=== PATIENT | female | born 1995 | race Caucasian/White ===

== ENCOUNTER 2018-01-10 07:57 | Inpatient (IN) | payer BC ==
[~2018-01-10] VITALS: Ht 165.1 cm; Wt 65.8 kg
[2018-01-10] VITALS (7 sets, daily range): BP systolic 112–137; BP diastolic 60–84
--- NOTE | 2018-01-10 08:09 | NUR ---
SPOKE WITH GLADIS LYNCH ANIMAL CONTROL, STATES SHE WILL FOLLOW UP WITH PATIENT.
[2018-01-10 08:49] LABS: ABSOLUTE EOSINOPHILS 0.2 thou/uL (0.0-0.7); ABSOLUTE LYMPHOCYTES 1.2 thou/uL (0.8-5.3); ABSOLUTE MONOCYTES 0.6 thou/uL (0.0-1.2); ABSOLUTE NEUTROPHILS 6.5 thou/uL (1.6-8.1); BASOPHILS 0.5 %; EOSINOPHILS 2.2 %; HEMATOCRIT 40.2 % (37.0-47.0); HEMOGLOBIN 13.6 gm/dL (12.0-15.0); LYMPHOCYTES 14.1 %; MCH 29.3 pg (26.0-34.0); MCHC 33.8 g/dL (28.0-37.0); MCV 86.6 fL (80.0-100.0); MONOCYTES 7.4 %; MPV 8.8 fl. (7.2-11.1); NUCLEATED RBCS 0 /100WBC; PLATELET COUNT* 262 thou/uL (150-400); POLYS 75.8 %; RBC 4.65 mil/uL (4.20-5.00); RDW-CV 12.9 % (10.5-14.5); WBC 8.5 thou/uL (4.0-11.0)
[2018-01-10 08:56] LABS: CALCIUM 8.9 mg/dL (8.5-10.1); CREATININE 0.9 mg/dL (0.6-1.3)
[2018-01-10 09:01] LABS: ALBUMIN 3.9 g/dL (3.4-5.0); TOTAL BILIRUBIN 0.3 mg/dL (<0.1-1.0); TOTAL PROTEIN 7.9 g/dL (6.4-8.2)
[2018-01-10 09:52] LABS: ESR (SEDRATE) 17 mm/hr (0-20)
--- NOTE | 2018-01-10 10:27 | NUR ---
PATIENT ADMITTED FROM ER TO ROOM 110. ALERT AND ORIENTED. PAIN CONTROLLED. RIGHT HAND/WRIST RED/SWOLLEN WITH MULTIPLE BITE GALEANO. ADMISSION HISTORY AND ASSESSMENT CHARTED. ORIENTED TO ROOM AND BED CONTROLS. ORTHO CONSULT. IV ABX IN ER PRIOR TO ADMISSION. CALL LIGHT WITHIN REACH. WILL CONTINUE TO MONITOR.
--- NOTE | 2018-01-10 15:28 | NUR ---
PATIENT TRANSFERRED TO PACU AT THIS TIME.
--- NOTE | 2018-01-10 17:52 | NUR ---
PATIENT RETURNED FROM SURGERY AT THIS TIME. DENIES PAIN. DROWSY. IVF AND IV ANTIBIOTIC INFUSING ORDERED. RIGHT HAND ELEVATED ON PILLOW. BLOCK IN PACU. SCD'S IN PLACE. WATER PROVIDED AND DINNER ORDERED. VSS. RA SAT 97%. FAMILY AT BEDSIDE. WILL CONTINUE TO MONITOR.
[2018-01-11 00:34] VITALS: BP 108/68
--- NOTE | 2018-01-11 05:47 | NUR ---
PATIENT ALERT AND ORIENTED. VITALS STABLE. ALTERNATING PO AND IV PAIN MEDICATION. ACEWRAP TO RIGHT HAND SLIGHTLY LOOSENED PER PATIENT REQUEST. DRESSING C/D/I. RIGHT HAND ELEVATED ON PILLOW. ABLE TO MOVE FINGERS, CAPILLARY REFILL GOOD. UP SBA TO BATHROOM. FLUIDS INFUSING PER ORDER. RESTING COMFORTABLY. HOURLY ROUNDS. BED ALARM IN USE. NURSING WILL CONTINUE TO MONITOR.
[2018-01-11 06:28] LABS: HEMATOCRIT 33.9 % (37.0-47.0); MCH 29.6 pg (26.0-34.0); MCHC 33.9 g/dL (28.0-37.0); MCV 87.4 fL (80.0-100.0); MPV 8.7 fl. (7.2-11.1); RBC 3.88 mil/uL (4.20-5.00); RDW-CV 13.2 % (10.5-14.5); WBC 9.7 thou/uL (4.0-11.0)
[2018-01-11 06:32] LABS: HEMOGLOBIN 11.5 gm/dL (12.0-15.0)
[2018-01-11 06:37] LABS: CALCIUM 8.2 mg/dL (8.5-10.1); CREATININE 0.6 mg/dL (0.6-1.3); MAGNESIUM 1.9 mg/dL (1.8-2.4); POTASSIUM 4.2 mmol/L (3.5-5.1)
[2018-01-11 08:15] VITALS: BP 116/72
--- NOTE | 2018-01-11 15:43 | NUR ---
CM SPOKE TO THE PATIENT TO DISCUSS HOME SITUATION, DISCHARGE PLANNING, AND TO INFORM OF THE ROLE OF CM. PATIENT ALERT, ORIENED AND INDEPENDENT WITH ADL'S. PATIENT WORKS AND DRIVES. PATIENT HAS NO HX OF HH. CM SPOKE TO THE PATIENT ABOUT THE POSSIBILITY OF BEING ON I.V. ABT. PATIENT STATES THAT SHE HAS NEVER DONE THEM, AND IS HOPEFUL THAT SHE WILL RETURN HOME ON ORAL ABT. CM WILL REMAIN AVAILABLE TO ASSIST AND FOLLOW NEEDED.
[2018-01-11 16:04] VITALS: BP 114/63
--- NOTE | 2018-01-11 20:09 | NUR ---
I ASSUMED CARE OF THE PATIENT AT 0700. SHE IS ALERT AND ORIENTED X4. BED IS IN THE LOW LOCKED POSITION, BUT PATIENT IS UP TO THE BATHROOM WITH STAND BY ASSISTANCE X1. SHE WILL LIKELY BE HERE OVER THE WEEKEND GETTING IV ANTIBIOTICS AND CONTROLLING THE PAIN. RIGHT HAND IS RHONDA WRAPPED AND ELEVATED ON PILLOWS AND ICE PACKS HAVE BEEN GIVEN. SHE MOSTLY EATS THE FOOD THAT HER FAMILY BRINGS HER. HOURLY ROUNDING WAS COMPLETED AND PATIENT NEEDS WERE MET. VITAL SIGNS ARE STABLE. WILL CONTINUE TO MONITOR.
[2018-01-11 21:20] VITALS: BP 106/63
[2018-01-11 23:30] VITALS: BP 122/82
[2018-01-12 04:43] VITALS: BP 115/60
[2018-01-12 04:46] LABS: HEMATOCRIT 33.3 % (37.0-47.0); HEMOGLOBIN 11.3 gm/dL (12.0-15.0); MCH 29.6 pg (26.0-34.0); MCHC 33.8 g/dL (28.0-37.0); MCV 87.5 fL (80.0-100.0); MPV 8.4 fl. (7.2-11.1); RBC 3.8 mil/uL (4.20-5.00); RDW-CV 13.1 % (10.5-14.5); WBC 8.6 thou/uL (4.0-11.0)
--- NOTE | 2018-01-12 04:54 | NUR ---
PATIENT ALERT AND ORIENTED. VITALS STABLE. UP WITH SBA. PAIN CONTROLLED WITH PO MEDICATION. DENIES NAUSEA. RIGHT HAND DRESSING C/D/I, ELEVATED ON PILLOW. ICEPACK IN PLACE. HOURLY ROUNDS. BED ALARM IN USE. NURSING WILL CONTINUE TO MONITOR.
[2018-01-12 08:15] VITALS: BP 108/65
[2018-01-12] MEDS ORDERED: AUGMENTIN 875-1 EACH PO (08:38)
[2018-01-12] MEDS ORDERED: LIDOPATCH1 EACH TOP (08:38)
[2018-01-12] MEDS ORDERED: PHENERGAN 25 MG25 M1 PO (08:38)
[2018-01-12 15:25] VITALS: BP 108/65
--- NOTE | 2018-01-12 19:48 | NUR ---
I ASSUMED CARE OF THE PATIENT AT 0700. SHE IS ALERT AND ORIENTED X4. BED IS IN THE LOW LOCKED POSITION AND CALL LIGHT IS IN REACH. HOURLY ROUNDING WAS COMPLETED AND PATIENT NEEDS WERE MET. PAIN IS MANAGED WITH PRN MEDS. SHE IS PROGRESSING TOWARD GOALS. SHE WAS DISCHARGED TO HOME WITH HER GIRLFRIEND AND UNDERSTANDS DISCHARGE INFO. SCRIPTS WERE GIVEN. SHE WAS WALKED OUT AT 1445.
--- NOTE | 2018-01-17 06:54 | OP ---
[address] [address] OPERATIVE REPORT Name: TALIARENETTA DUMAS Room: [address]#: [id number] Admission: 01/10/18 Attend Phys: Alyssa Gallo MD Discharge: 01/12/18 Date of : 89 Report #: [id number] THIS REPORT FOR: //name// CC: Alyssa Reyes DATE OF SERVICE: 01/10/2018 PREOPERATIVE DIAGNOSIS: Cat bite to the right hand with cellulitis, possibility of septic arthritis, metacarpophalangeal joint, index finger. POSTOPERATIOVE DIAGNOSIS: Cat bite to the right hand with cellulitis, possibility of septic arthritis, metacarpophalangeal joint, index finger. SURGERY PERFORMED: Incision and excisional debridement of extensor synovial tissue over 3 cm x 1 cm sharp dissection and scissors technique. The patient had an arthrotomy of the MP joint index finger with lavage. SURGEON: Dawood Morse DO MACHINE WELT BUTTER: Zach. ANESTHESIA: General technique and local anesthetic postoperatively of 0.25% plain Marcaine. DESCRIPTION OF PROCEDURE: The patient has no drains. No complications. There is no specimen, but she did have a culture of the MP joint, synovial fluid and also a culture of subcutaneous tissues. The patient's estimated blood loss is nil. The patient has no complications. GROSS FINDINGS PRIOR TO SURGERY: The patient demonstrated multiple cat bites with puncture holes over the index finger MP joint area with significant erythema and swelling and pain through motion. The patient did demonstrate superficial ones to the dorsal hand and wrist region otherwise, but were not dramatic like the index finger. Upon open inspection, it demonstrated fluid within the MP joint more than normal and hypertrophic synovial layer. The extensor tendon area externally to the joint demonstrated puncture bites where there was significant amount of soft tissue inflammation present over the entire extensor complex. SURGERY IN DETAIL: The patient was taken to the operating room and placed on table, given the benefit of general anesthetic. She had a well-padded tourniquet placed on the right upper extremity, underwent a chlorhexidine prep and sterile draping for right hand surgery. Timeout was called and verified for the right. We esmarched the extremity with the Esmarch proximal to the bite wounds and then inflated tourniquet to 200 mmHg. Under loupe magnification, [place] [address] OPERATIVE REPORT Name: RENETTA MUKHERJEE Room: [address]#: [id number] Admission: 01/10/18 Attend Phys: Alyssa Gallo MD Discharge: 01/12/18 Date of : 89 Report #: [id number] longitudinal incision was made over the MP joint extending proximally and distally for at least 1.5 cm. Once the extensor tendon was visualized, we did excisionally debrided out all that inflammatory tissue in the subcutaneous plane by scissor technique and sharp technique over that entire 3 cm span by at least 1.5 cm down to the extensor tendon. Once this was cleaned out, we copiously irrigated that layer with normal saline and then the MP joint felt very boggy, so we did do a longitudinal incision through the capsule, did the arthrotomy, took cultures deep within there. The fluid that was present was more than normal and it was copiously lavaged to the entire MP joint with normal saline. The capsule was closed with inverted 3-0 Monocryl and skin was closed with 3-[address], a simple fashion. We did the infiltration of 0.25% Marcaine and then went ahead and finished closing the area with Xeroform, 4 x 4s, Mayda and Eric wrap. Transferred off table, taken to recovery in stable condition. I was present for the entire case. Needle, instrument, sponge counts correct. <ELECTRONICALLY SIGNED> By: Dawood Morse DO 01/17/18 [id number] Morse DO /nt
== END 2018-01-12 16:40 | disposition home or self-care (01) | DRG 513 ==
LOC: M.ERS 07:57 → M.ORTHSURG 09:07 → M.TBA-ER 09:07 → M.ORTHSURG 09:56
PROVIDERS: Emergency Medicine Emergency Medical Services; ADMIT Internal Medicine
PROC: 0RBU0ZZ Excision of Right Metacarpophalangeal Joint, Open Approach (ICD-10-PCS; principal; 2018-01-10)
DX: M65.841 Other synovitis and tenosynovitis, right hand (principal); R65.10 Systemic inflammatory response syndrome (SIRS) of non-infectious origin without acute organ dysfunction; S61.250A Open bite of right index finger without damage to nail, initial encounter; L03.011 Cellulitis of right finger; W55.01XA Bitten by cat, initial encounter; Y93.89 Activity, other specified; Y92.89 Other specified places as the place of occurrence of the external cause; Y99.8 Other external cause status; Z23 Encounter for immunization